=== PATIENT | female | born 1975 | race Caucasian/White ===

== ENCOUNTER 2022-08-13 12:32 | Inpatient (IN) ==
[2022-08-13] MEDS ORDERED: Ibuprofen 600 MG TABLET PO ONE (12:50)
[2022-08-13 13:29] LABS: Influenza A PCR Negative (Negative); Influenza B PCR Negative (Negative); Resp. Syncytial Virus PCR Negative (Negative)
[2022-08-13 13:30] LABS: SARS-CoV-2 by PCR (In House) Negative (Negative)
[2022-08-13] MEDS ORDERED: *HR* LORazepam 1 MG TABLET PO PRN (17:12)
[2022-08-13] MEDS ORDERED: *HR* LORazepam 2 MG/ML VIAL IM PRN (17:12)
[2022-08-13] MEDS ORDERED: hydrOXYzine pamoate 25 MG CAPSULE PO PRN (17:12)
[2022-08-13] MEDS ORDERED: haloperidoL 5 MG TABLET PO PRN (17:12)
[2022-08-13] MEDS ORDERED: Haloperidol Lactate 5 MG/ML VIAL IM PRN (17:12)
[2022-08-13] MEDS: Nicotine 21 MG PATCH.TD24 TD SCH (17:53)
[2022-08-13] MEDS ORDERED: traZODone 50 MG TABLET PO SCH (21:00)
[2022-08-13] MEDS: rOPINIRole 1 MG TABLET PO SCH (21:18)
[2022-08-14] MEDS: Nicotine 21 MG PATCH.TD24 TD SCH (09:08)
[2022-08-14] MEDS: FLUoxetine 20 MG CAPSULE PO SCH (09:09)
[2022-08-14] MEDS: Ibuprofen 400 MG TABLET PO PRN (12:22)
[2022-08-14] MEDS ORDERED: Mag Hydrox/Al Hydrox/Simeth 30 ML UDC PO PRN (14:40)
[2022-08-14] MEDS ORDERED: MOM Conc 10 ML UD.LIQ PO PRN (14:40)
[2022-08-14] MEDS: rOPINIRole 1 MG TABLET PO SCH (20:06)
[2022-08-14] MEDS ORDERED: traZODone 50 MG TABLET PO SCH (21:00)
[2022-08-15] MEDS: Ibuprofen 400 MG TABLET PO PRN (04:32)
[2022-08-15] MEDS: Nicotine 21 MG PATCH.TD24 TD SCH (09:36)
[2022-08-15] MEDS: FLUoxetine 20 MG CAPSULE PO SCH (09:37)
[2022-08-15 10:38] VITALS: BP 118/83; PULSE 93; TEMP 97.8; O2SAT 99
== END 2022-08-15 15:30 | disposition home or self-care (01) | DRG 885 ==
LOC: EMEROOARM 12:32 → 1ANU 17:27
PROVIDERS: ADMIT Psychiatry & Neurology Psychiatry; ATTEND Psychiatry & Neurology Psychiatry